=== PATIENT | female | born 1975 | race Caucasian/White ===

== ENCOUNTER 2016-12-25 06:21 | Emergency (ER) | payer OTHER ==
[~2016-12-25] VITALS: Ht 167.6 cm; Wt 74.0 kg
[2016-12-25 06:24] VITALS: Ht 167.6 cm; Wt 74.0 kg
[2016-12-25 07:54] LABS: BASOPHIL # 0.1 10^3/ul (0.0-0.1); BASOPHILS % 0.9 % (0.0-2.0); EOSINOPHILS # 0.3 10^3/ul (0.0-0.5); EOSINOPHILS % 3.2 % (0.0-7.0); HEMOGLOBIN 13.8 g/dl (12.0-16.0); LYMPHOCYTES # 3.4 10^3/ul (0.8-2.9); LYMPHOCYTES % 38.2 % (15.0-51.0); MEAN CORPUSCULAR HEMOGLOBIN 29.4 pg (29.0-33.0); MEAN CORPUSCULAR HGB CONC 33.7 g/dl (32.0-37.0); MEAN CORPUSCULAR VOLUME 87.2 fl (82.0-101.0); MEAN PLATELET VOLUME 11.7 fl (7.4-10.4); MONOCYTE # 0.7 10^3/ul (0.3-0.9); MONOCYTES % 7.3 % (0.0-11.0); NEUTROPHILS % 50.2 % (39.0-77.0); PLATELET COUNT 256 10^3/UL (140-415); RED CELL DISTRIBUTION WIDTH 13.2 % (11.5-14.5)
[2016-12-25 08:12] LABS: ALBUMIN 4.2 g/dl (3.3-4.9); ALBUMIN/GLOBULIN RATIO 1.2; BILIRUBIN,INDIRECT 0.1 mg/dl (0-1.1); BILIRUBIN,TOTAL 0.1 mg/dl (0.2-1.3); CALCIUM 9.2 mg/dl (8.4-10.2); CREATININE 0.76 mg/dl (0.44-1.00); POTASSIUM 4.4 mmol/L (3.5-5.1); TOTAL PROTEIN 7.7 g/dl (6.1-8.1)
--- NOTE | 2016-12-25 08:54 | RADRPT ---
PROCEDURE: Pelvic ultrasound. CLINICAL INDICATION: Pelvic pain TECHNIQUE: Proctor scale, color doppler, spectral doppler ultrasound of the pelvis was performed with transabdominal transducers. COMPARISON: No prior studies are available for comparison. FINDINGS: Uterus: Position: Anteverted. Subserosal fibroid of the anterior uterine body measuring 2.5 x 2.0 x 2.2 cm possibly minimally abut s the endometrium. Normal appearance of the endometrium. Ovaries: Normal sized ovaries with preserved blood flow. No adnexal masses. 3.8 cm dominant follicle left ovary. Free fluid: None. Measurements: Endometrium (cm): 0.6 Uterus (cm): 8.5 x 4.2 x 4.0 Right ovary (cm): 2.5 x 1.3 x 2.4 Left ovary (cm): 3.0 x 3.9 x 3.6 IMPRESSION: Normal appearance of the right ovary. 3.8 cm dominant follicle of the left ovary 2.5 cm subserosal fibroid of the anterior uterine body possibly minimally abuts the endometrium. RPTAT: AADD .Chao Kruse MD, Date Time Electronically viewed and signed by .Chao Kruse MD, on 12/25/2016 08:53 .B/
--- NOTE | 2016-12-25 09:13 | ERD ---
ER Documentation Chief Complaint Date/Time DATE: 12/25/16 TIME: 09:09 Chief Complaint c/o VB x 3 wks. HPI This is a 41-year-old female who presents the emergency department today complaining of vaginal bleeding for the past 3 weeks. Patient states that 2 months ago she did not get her period and then she got it and has now had it for 3 weeks. States that 3 years ago she had something similar was taking control pills. Denies any fevers or chills or abdominal pain, dysuria.States that she does have a primary care physician and has an appointment on January 03 with a license examiner. ROS All systems reviewed and are negative except as per history of present illness. Medications Home Meds Active Scripts Acetaminophen* (Tylophen*) 500 Mg Capsule, 1 CAP PO Q6H Y for PAIN AND OR ELEVATED TEMP, #30 CAP Prov:ADOLFO GARCIA PA-C 12/25/16 Naproxen* (Naprosyn*) 500 Mg Tablet, 500 MG PO BID Y for PAIN AND/OR INFLAMMATION, #30 TAB Prov:ADOLFO GARCIA PA-C 12/25/16 Allergies Allergies: Coded Allergies: No Known Allergy (Unverified , 12/25/16) PMhx/Soc Medical and Surgical Hx: pt denies Medical Hx, pt denies Surgical Hx Hx Alcohol Use: No Hx Substance Use: No Hx Tobacco Use: No Physical Exam Vitals Vital Signs Date Time Temp Pulse Resp B/P Pulse Ox O2 Delivery O2 Flow Rate FiO2 12/25/16 06:24 98.1 89 18 129/64 98 Physical Exam Const: No acute distress Head: Atraumatic Eyes: Normal Conjunctiva ENT: Normal External Ears, Nose and Mouth. Neck: Full range of motion..~ No meningismus. Resp: Clear to auscultation bilaterally Cardio: Regular rate and rhythm, no murmurs Abd: Soft, non tender, non distended. Normal bowel sounds Skin: No petechiae or rashes Back: No midline or flank tenderness Ext: No cyanosis, or edema Neur: Awake and alert Psych: Normal Mood and Affect Result Diagram: 12/25/16 0725 12/25/16 0725 Results 24 hrs Laboratory Tests Test 12/25/16 07:25 White Blood Count 9.010^3/ul Red Blood Count 4.7010^6/ul Hemoglobin 13.8g/dl Hematocrit 41.0% Mean Corpuscular Volume 87.2fl Mean Corpuscular Hemoglobin 29.4pg Mean Corpuscular Hemoglobin Concent 33.7g/dl Red Cell Distribution Width 13.2% Platelet Count 04581^3/UL Mean Platelet Volume 11.7fl Neutrophils % 50.2% Lymphocytes % 38.2% Monocytes % 7.3% Eosinophils % 3.2% Basophils % 0.9% Nucleated Red Blood Cells % 0.0/100WBC Neutrophils # (Manual) 4.510^3/ul Lymphocytes # 3.410^3/ul Monocytes # 0.710^3/ul Eosinophils # 0.310^3/ul Basophils # 0.110^3/ul Nucleated Red Blood Cells # 0.010^3/ul Sodium Level 146mmol/L Potassium Level 4.4mmol/L Chloride Level 105mmol/L Carbon Dioxide Level 26mmol/L Anion Gap 19 Blood Urea Nitrogen 18mg/dl Creatinine 0.76mg/dl Glucose Level 104mg/dl Calcium Level 9.2mg/dl Total Bilirubin 0.1mg/dl Direct Bilirubin 0.00mg/dl Indirect Bilirubin 0.1mg/dl Aspartate Amino Transf (AST/SGOT) 19IU/L Alanine Aminotransferase (ALT/SGPT) 31IU/L Alkaline Phosphatase 71IU/L Total Protein 7.7g/dl Albumin 4.2g/dl Globulin 3.50g/dl Albumin/Globulin Ratio 1.20 DIAGNOSTIC IMAGING REPORT Patient: RAVEN BLANC : 1975 Age: 41 Sex: F MR #: [id number] DOS: 12/25/16 0000 Ordering MD: ADOLFO GARCIA PA-C Location: [facility] Room/Bed: PROCEDURE: Pelvic ultrasound. CLINICAL INDICATION: Pelvic pain TECHNIQUE: Proctor scale, color doppler, spectral doppler ultrasound of the pelvis was performed with transabdominal transducers. COMPARISON: No prior studies are available for comparison. FINDINGS: Uterus: Position: Anteverted. Subserosal fibroid of the anterior uterine body measuring 2.5 x 2.0 x 2.2 cm possibly minimally abuts the endometrium. Normal appearance of the endometrium. Ovaries: Normal sized ovaries with preserved blood flow. No adnexal masses. 3.8 cm dominant follicle left ovary. Free fluid: None. Measurements: Endometrium (cm): 0.6 Uterus (cm): 8.5 x 4.2 x 4.0 Right ovary (cm): 2.5 x 1.3 x 2.4 Left ovary (cm): 3.0 x 3.9 x 3.6 IMPRESSION: Normal appearance of the right ovary. 3.8 cm dominant follicle of the left ovary 2.5 cm subserosal fibroid of the anterior uterine body possibly minimally abuts the endometrium. RPTAT: AADD .Chao Kruse MD, MD Date Time Electronically viewed and signed by .Chao Kruse MD, on 12/25/2016 08:53 .B/ CC: ADOLFO GARCIA PA-C Procedures/[facility] This a 41-year-old female presents the emergency department today complaining of vaginal bleeding for the past 3 weeks. Patient has had a history of this in the past. Given patient's complaints of vaginal bleeding for the past 3 weeks I did obtain laboratory work as well as imaging. test is negative Laboratory workup shows no elevated white blood cell count. She is not anemic. Platelets are within normal limits. Sodium is mildly elevated otherwise electrolytes are within normal limits. Liver enzymes are within normal limits. Glucose is within normal limits per Ultrasound shows a normal appearance of the right ovary. There is a 3.8 cm dominant follicle of the left ovary. There are no adnexal masses. There is a subserosal fibroid of the anterior uterine body measuring 2.5 x 2.0 x 2.2 cm possibly minimally abuts the endometrium. Patient symptoms at this time is consistent with vaginal bleeding and dysfunctional uterine bleeding possibly due to fibroids. I have explained this to the patient. Patient denies any abdominal pain and has no abdominal pain on physical exam. Low suspicion for ectopic , to ovarian abscess, ovarian torsion, acute surgical abdomen. Patient will be given a prescription for Tylenol and Naprosyn for home. She was instructed to keep her appointment with her SHELL SIEVE OPERATOR for January 03 and she may try to see them sooner. At this time the patient is stable for discharge and outpatient management. Patient should follow up with their PCP in the next 1-2 days. They may return to the emergency department sooner for any persistent or worsening of symptoms. Patient understood and agreed with the plan. Steam Crane Operator used on inital [facility] #[id number] [facility] PA-student Kaitlin Bragg used for translation at discharge Departure Diagnosis: Primary Impression: Vaginal bleeding Condition: ADOLFO Medina PA-C Dec 25, 2016 09:13
[2016-12-25] MEDS ORDERED: NAPR-260 PO (09:32)
[2016-12-25] MEDS ORDERED: ACET500C5 PO (09:33)
== END 2016-12-25 10:05 | disposition home or self-care (01) ==
LOC: FTE 06:21
DX: N93.9 Abnormal uterine and vaginal bleeding, unspecified (principal); R10.2 Pelvic and perineal pain
CPT/HCPCS: 36415; 76856; 80053; 85025; Z7502

== ENCOUNTER 2017-05-15 03:30 | Emergency (ER) | END 2017-05-15 04:40 | disposition left against medical advice (07) ==